=== PATIENT | male | born 1950 | race Caucasian/White ===

== ENCOUNTER 2017-06-07 11:21 | Emergency (ER) | payer MEDICARE, OTHER ==
[~2017-06-07] VITALS: Ht 177.8 cm; Wt 81.8 kg
[2017-06-07] MEDS ORDERED: FINASTERIDE5 MG PO (11:37)
[2017-06-07] MEDS ORDERED: MOTRIN400 MG PO (12:18)
[2017-06-07 12:25] VITALS: BP 149/87
== END 2017-06-07 12:25 | disposition home or self-care (01) ==
LOC: ED 11:21
DX: M25.531 Pain in right wrist (principal); M25.511 Pain in right shoulder; F17.210 Nicotine dependence, cigarettes, uncomplicated; W11.XXXA Fall on and from ladder, initial encounter; Y93.89 Activity, other specified; Y92.008 Other place in unspecified non-institutional (private) residence as the place of occurrence of the external cause

== ENCOUNTER 2020-03-02 19:55 | Emergency (ER) | payer MEDICARE ==
[~2020-03-02 19:55] MED LIST: FINASTERIDE5 MG PO; MOTRIN400 MG PO
[2020-03-02] MEDS ORDERED: BACTRIM DS1 TAB PO (20:23)
[2020-03-02 21:04] VITALS: BP 119/76
[2020-03-02 21:11] LABS: URINE BILIRUBIN - DIPSTICK NEGATIVE (NEGATIVE); URINE BLOOD DIPSTICK LARGE (NEGATIVE); URINE COLOR YELLOW; URINE GLUCOSE - DIPSTICK NEGATIVE (NEGATIVE); URINE KETONE 15 mg/dL (NEGATIVE); URINE LEUK ESTERASE NEGATIVE (NEGATIVE); URINE NITRITE - DIPSTICK NEGATIVE (Negative); URINE PROTEIN - DIPSTICK NEGATIVE (NEG-TRACE); URINE UROBILINOGEN - DIPSTICK 0.2 E.U./dL (0.2)
[2020-03-02 21:21] LABS: URINE WBC 0-2 WBC/hpf (0-5)
== END 2020-03-02 21:04 | disposition home or self-care (01) ==
LOC: ED 19:55
PROVIDERS: Emergency Medicine
PROC: 0T9B70Z Drainage of Bladder with Drainage Device, Via Natural or Artificial Opening (ICD-10-PCS; principal; 2020-03-02)
DX: R33.9 Retention of urine, unspecified (principal); N42.9 Disorder of prostate, unspecified; F17.200 Nicotine dependence, unspecified, uncomplicated